=== PATIENT | female | born 1960 | race Caucasian/White ===

== ENCOUNTER 2019-07-22 09:54 | Emergency (ER) | payer BC, SELFPAY ==
[2019-07-22 10:03] VITALS: BP 149/88; PULSE 63; RESP 16; TEMP 36.1; O2SAT 99
--- NOTE | 2019-07-22 10:08 | ED.FEMALEGU ---
HPI - Female Genitourinary General Chief complaint: Urogenital-Female Stated complaint: kidney infection Time Seen by Provider: 07/22/19 10:08 Source: patient Mode of arrival: ambulatory Limitations: no limitations History of Present Illness HPI Narrative: Prema Meléndez is a 59 yo female with a PMH of parathyroid dysfunction and anxiety, who comes to express care with urinary frequency and L sided flank pain for about 2 days. Denies hx of renal stones. No fever, N/V, hematuria. 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 EYES: Denies visual changes, redness, discharge. ENT: Denies rhinorrhea, congestion, sore throat, otalgia. CARDIOVASCULAR: Denies chest pain, palpitations, edema. RESPIRATORY: Denies dyspnea, wheezing, cough GASTROINTESTINAL: Denies abdominal pain, nausea, vomiting, diarrhea. GENITOURINARY: has dysuria, no hematuria, no abnormal discharge SKIN: Denies rash or itching. NEUROLOGIC: Denies numbness, or focal weakness. PSYCHIATRIC: Denies anxiety or depression. L low back pain PMFSH Past Medical History Medical History Anxiety Hyperlipidemia Vitamin D deficiency Surgical History Surgical History S/P subtotal parathyroidectomy Family History Family History Mother Cerebrovascular accident Family history of coronary artery disease Father Family history of lung cancer, Onset Age: 53 Other Diabetes mellitus Family history of malignant neoplasm Hypertension Social History Social History (Updated 07/22/19 @ 10:19 by Teresa Villarreal CNP) Smoking status: Former smoker Smoking end date: 02/07/82 Alcohol intake: current Alcohol use details: feeling very stressed, drinks regularly with intent to cut back Gender identity (if verbalized by the patient): Female Comments At time of signature, I agree with nursing past medical, surgical, social and family history. There is no relevant family history pertinent to the presenting complaint. Pt anxious and upset- needs BP recheck through pcp Exam Narrative: Exam Narrative: GENERAL: This is a well-nourished, well-developed patient, in mild distress. HEAD: normocephalic, atraumatic. EYES: Sclera clear/white. Vision is grossly intact. EARS: External ears normal. Hearing grossly intact. NOSE: External nose normal without nasal discharge, nares without redness, no rhinorrhea. THROAT: Mucous membranes moist, NECK: Neck supple, CARDIOVASCULAR: Regular rate and rhythm without murmurs, gallops, or rubs. RESPIRATORY: Clear to auscultation. Breath sounds equal bilaterally. No wheezes, rales, or rhonchi. GASTROINTESTINAL: Abdomen soft, SKIN: warm, intact with no suspicious lesions or rash, good texture and turgor. NEURO: awake, alert, and oriented to person, place and time. There were no obvious focal neurologic abnormalities. Steady gait EXTREMITIES: Normal range of motion. BACK: Mild low left back tenderness without deformity Course Course Emergency Course: Low back pain: started on baclofen Dysurua: has been drinking water, started on keflex If not resolved or worsen, go to pcp or ER Vital Signs Vital signs: Vital Signs Temperature 97.0 F L 07/22/19 10:03 Pulse Rate 63 07/22/19 10:03 Respiratory Rate 16 07/22/19 10:03 Blood Pressure 149/88 H 07/22/19 10:03 Pulse Oximetry 99 07/22/19 10:03 Temperature 97.0 F L 07/22/19 10:03 Pulse Rate 63 07/22/19 10:03 Respiratory Rate 16 07/22/19 10:03 Blood Pressure 149/88 H 07/22/19 10:03 Pulse O
== END 2019-07-22 10:32 | disposition home or self-care (01) ==
PROVIDERS: Emergency Provider Nurse Practitioner; PCP Family Medicine
DX: R30.0 Dysuria (principal); M54.5 Low back pain
CPT/HCPCS: 81003; 87086; 87088; 99213; G0463

== ENCOUNTER 2019-08-20 12:43 | Emergency (ER) | payer OTHER, BC, SELFPAY ==
--- NOTE | ~2019-08-20 | XR_ITS ---
XR foot RT min 3V 08/20/2019 13:07 INDICATION: Right foot pain PROCEDURE: 4 views right foot COMPARISON: No prior studies for comparison. FINDINGS: Fracture, dislocation or subluxation is not identified. Lisfranc joint intact. The soft tis sues appear within normal limits. No foreign bodies are identified. IMPRESSION: 1: NO ACUTE BONE OR JOINT ABNORMALITY IDENTIFIED. Reviewed, dictated and finalized at location B.
--- NOTE | 2019-08-20 12:49 | ED.GENADULT ---
HPI - General Adult General Chief complaint: Extremity Injury, Lower Stated complaint: rt foot pain Time Seen by Provider: 08/20/19 12:49 Source: patient Mode of arrival: ambulatory Limitations: no limitations History of Present Illness HPI narrative: 59-year-old female patient presents to the [facility] with complaints of right foot pain. Patient states that she was at work today and there was a fire alarm that went off and states that she was walking down the [place] closing some doors and she heard a noise and she went to go and turn and started having pain in the right foot. Denies hitting anything. Denies falling. Patient states that she did ice it after the injury but denies take anything for pain. Denies any numbness or tingling to the foot or toes. Patient currently using a walker to ambulate into the clinic today. Related Data Home Medications Medication Instructions Recorded Confirmed No Home Medications 08/20/19 08/20/19 Allergies Allergy/AdvReac Type Severity Reaction Status Date / Time No Known Allergies Allergy Verified 07/22/19 10:07 Review of Systems Review of Systems: Narrative: CONSTITUTIONAL: Denies fever, chills, or sweats. EYES: Denies visual changes, redness, or discharge. ENT: Denies rhinorrhea, congestion, sore throat, or otalgia. CARDIOVASCULAR: Denies chest pain, palpitations, or edema. RESPIRATORY: Denies cough or dyspnea. GASTROINTESTINAL: Denies abdominal pain, nausea, vomiting, or diarrhea. GENITOURINARY: Denies dysuria or hematuria. SKIN: Denies rash or itching. MUSCULOSKELETAL: Denies back pain, joint pain, or myalgia. Positive right foot pain NEUROLOGIC: Denies headache, numbness, or weakness. PSYCHIATRIC: Denies anxiety or depression. [facility] Past Medical History Medical History Anxiety Hyperlipidemia Vitamin D deficiency Surgical History Surgical History S/P subtotal parathyroidectomy Family History Family History Mother Cerebrovascular accident Family history of coronary artery disease Father Family history of lung cancer, Onset Age: 53 Other Diabetes mellitus Family history of malignant neoplasm Hypertension Social History Social History Smoking status: Former smoker Smoking end date: 02/07/82 Alcohol intake: current Gender identity (if verbalized by the patient): Female Comments At the time of my signature I agree with nursing past medical history, surgical, social, and family history. There is no relevant family history pertinent to the presenting complaint. Exam Narrative: Exam Narrative: GENERAL: Well-appearing, well-nourished, and in no acute distress. HEAD: Normocephalic, atraumatic. EYES: PERRLA and EOMI. ENT: Nares clear, no rhinorrhea or epistaxis. Mucous membranes moist. NECK: Supple. No lymphadenopathy CHEST: Clear to auscultation. No respiratory distress. HEART: Regular rate and rhythm. No murmur heard. Normal peripheral pulses. ABDOMEN: Soft, nontender, nondistended, normal active bowel sounds. EXTREMITIES: Patient able to bear weight and ambulate without pain. No surface trauma, ecchymosis, erythema, lesions, ulcers or break in skin integrity. The R foot is without obvious asymmetry or deformity when compared to the L foot. No bony step-off, nontender to palpation over the toesor hindfoot or sole. Patient does have tenderness to the lateral midfoot on palpation. Normal plantar/dorsiflexion, inversion/eversion. Distal motor and neurovascular status are intact SKIN: Warm, dry, no rash. NEURO: No focal deficits. Alert and oriented x3. Course Reevaluation(s) Reevaluation #1: Reevaluated patient. Discussed with her that her x-ray does not show any acute fractures. Discussed with her this is most likely a strain or sprai
[2019-08-20 12:55] VITALS: BP 154/88; PULSE 92; RESP 20; TEMP 36.6; O2SAT 99
== END 2019-08-20 13:35 | disposition home or self-care (01) ==
PROVIDERS: Emergency Provider Nurse Practitioner Family; PCP Nurse Practitioner Family
DX: S93.601A Unspecified sprain of right foot, initial encounter (principal); X50.9XXA Other and unspecified overexertion or strenuous movements or postures, initial encounter; Z87.891 Personal history of nicotine dependence; E78.5 Hyperlipidemia, unspecified
CPT/HCPCS: 73630; 99213; G0463

== ENCOUNTER → 2020-02-18 07:10 | Outpatient (CLI) | payer BC, SELFPAY ==
--- NOTE | ~2020-02-18 | MM_ITS ---
EXAMINATION: MM screening [place] BI w angelo HISTORY: Screening TECHNIQUE: Craniocaudal and mediolateral oblique 3-D tomosynthesis images were obtained and synthetic 2-D images were generated. CAD analysis was submitted and interpreted. COMPARISON: Comparison to multiple prior studies sequentially, with oldest reviewed study dated 07/01. BREAST PARENCHYMAL COMPOSITION: The breasts are heterogeneously dense, which may obscure small masses . FINDINGS: There are developing asymmetries in the upper outer quadrant of the left breast. The right breast is stable without evidence for malignancy. IMPRESSION: 1. Developing left breast asymmetries. 2. Additional mammographic views and possible breast ultrasound are recommended. BI-RADS Category 0: Incomplete: Needs additional imaging evaluation. Reviewed, dictated and finalized at location A. SHER BROOMCORN IMPRESSION: 1. Developing left breast asymmetries. 2. Additional mammographic views and possible breast ultrasound are recommended . BI-RADS Category 0: Incomplete: Needs additional imaging evaluation.
== END ==
PROVIDERS: PCP Family Medicine; Visit Provider Nurse Practitioner Family
DX: Z12.31 Encounter for screening mammogram for malignant neoplasm of breast (principal); R92.8 Other abnormal and inconclusive findings on diagnostic imaging of breast
CPT/HCPCS: 77063; 77067

== ENCOUNTER → 2020-03-14 14:24 | Outpatient (CLI) | payer BC, SELFPAY ==
--- NOTE | ~2020-03-14 | MM_ITS ---
EXAMINATION: MM diagnostic mammo unilat LT HISTORY: Left breast asymmetries on screening mammogram TECHNIQUE: Additional 3-D tomosynthesis images of the left breast were performed and synthetic 2-D im ages were generated. CAD analysis was submitted and interpreted. COMPARISON: 02/18/2020, 01/02/2019, 06/02/2016 FINDINGS: There is a return to baseline fibroglandular appearance with spot compression views of the left breast. No suspicious mass, calcification, or architectural distortion are identified. IMPRESSION: 1. No mammographic evidence of malignancy. 2. Recommend routine screening mammography in one year. BI-RADS Category 1: Negative Reviewed, dictated and finalized at location A. S ARCHITECT
== END ==
PROVIDERS: Visit Provider Nurse Practitioner Family
DX: R92.8 Other abnormal and inconclusive findings on diagnostic imaging of breast (principal)
CPT/HCPCS: 77065

== ENCOUNTER → 2021-05-05 15:21 | Outpatient (CLI) | payer BC, SELFPAY ==
--- NOTE | ~2021-05-05 | MM_ITS ---
EXAMINATION: MM screening [facility] BI w angelo HISTORY: Screening mammogram TECHNIQUE: Craniocaudal and mediolateral oblique 3-D tomosynthesis images were obtained and synthetic 2-D images were generated. CAD analysis was submitted and interpreted. COMPARISON: 03/14/2020, 02/18/2020, 01/02/2019, 06/02/2016 BREAST PARENCHYMAL COMPOSITION: The breasts are heterogeneously dense, which may obscure small masses . FINDINGS: There is no suspicious mass, calcification, or architectural distortion to suggest malignan cy in either breast. There has been no suspicious interval change. IMPRESSION: 1. No mammographic evidence of malignancy. 2. Recommend routine screening mammography in one year. BI-RADS Category 1: Negative Reviewed, dictated and finalized at location A.
== END ==
PROVIDERS: Visit Provider Family Medicine
DX: Z12.31 Encounter for screening mammogram for malignant neoplasm of breast (principal)
CPT/HCPCS: 77063; 77067

== ENCOUNTER 2022-06-03 12:31 | Emergency (ER) | payer BC, SELFPAY ==
[2022-06-03 12:44] VITALS: BP 126/73; PULSE 89; RESP 16; TEMP 36.9; O2SAT 97
[2022-06-03 12:45] VITALS: BP 126/73; PULSE 89; RESP 16; TEMP 36.9; O2SAT 97
--- NOTE | 2022-06-03 12:46 | ED.URI ---
HPI - URI/Sore Throat General Chief Complaint: Upper Respiratory Infection Stated Complaint: FEVER/SINUS CONGESTION Source: patient and RN notes reviewed History of Present Illness HPI Narrative: 62 yo F presents to urgent care with complaints of congestion and a mild cough x 2-3 days. Pt reports fevers at home. Denies any chest pain, SOB, ear pain, sore throat, abdominal pain, N/V/D, or dsyuria. Pt has taken a couple Covid tests at home which were negative. Related Data Allergies Allergy/AdvReac Type Severity Reaction Status Date / Time losartan AdvReac Mild racing Verified 06/03/22 12:44 heart rate Review of Systems Review of Systems: Pertinent positives and pertinent negatives per HPI. PMFSH Past Medical History Medical History Anxiety Foot sprain Hyperlipidemia Knee pain Menopausal hot flushes Negative depression screening Normal mammography (~03/14/20) Right ankle injury Vitamin D deficiency Surgical History Surgical History S/P partial hysterectomy S/P subtotal parathyroidectomy Family History Family History Mother Cerebrovascular accident Heart disease Depression Anxiety Hypertension Father Lung cancer Grandparent Hypertension Heart disease Cerebrovascular accident Grandparent Diabetes mellitus Hypertension Heart disease Other Family history of malignant neoplasm Social History Social History Smoking status: Former smoker Smoking end date: 02/07/82 Alcohol intake: current Drinks per week: 3 Alcohol use details: feeling very stressed, drinks regularly with intent to cut back Substance use: never Living arrangements: alone Occupation/Education: occupation 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 There is no relevant family history pertinent to the patient complaint. Exam Narrative: GENERAL: This is a well-nourished, well-developed patient, in no apparent distress. HEAD: normocephalic, atraumatic. EYES: Sclera clear/white. Vision is grossly intact. EARS: External ears normal, auditory canals clear and without drainage, TMs normal without perforation. Hearing grossly intact. NOSE: Congestion THROAT: Mucous membranes moist, posterior pharynx clear. NECK: Neck supple, non-tender. Mild lymphadenopathy. CARDIOVASCULAR: Regular rate and rhythm without murmurs, gallops, or rubs. RESPIRATORY: Clear to auscultation. Breath sounds equal bilaterally. No wheezes, rales, or rhonchi. GASTROINTESTINAL: Abdomen soft, non-tender, nondistended. Bowel sounds are active. No hepato-splenomegaly, or palpable masses. No guarding. SKIN: warm, intact with no suspicious lesions or rash, good texture and turgor. NEURO: awake, alert, and oriented to person, place and time. There were no obvious focal neurologic abnormalities. Course Course Level of Care: Express Care Visit Vital Signs Vital signs: Vital Signs Temperature 98.5 F 06/03/22 12:44 Pulse Rate 89 06/03/22 12:44 Respiratory Rate 16 06/03/22 12:44 Blood Pressure 126/73 06/03/22 12:44 Pulse Oximetry 97 06/03/22 12:44 Temperature 98.5 F 06/03/22 12:45 Pulse Rate 89 06/03/22 12:45 Respiratory Rate 16 06/03/22 12:45 Blood Pressure 126/73 06/03/22 12:45 Pulse Oximetry 97 06/03/22 12:45 reviewed MDM - URI/Sore Throat MDM Narrative Medical decision making narrative: Viral illness may last between 7-21 days; antibiotics do not cure viral illness and are NOT recommended at this time. Also, recommend symptomatic treatment includes: rest, fluids
== END 2022-06-03 13:13 | disposition home or self-care (01) ==
PROVIDERS: Emergency Provider Nurse Practitioner Family; PCP Family Medicine
DX: B34.9 Viral infection, unspecified (principal); Z87.891 Personal history of nicotine dependence; E78.5 Hyperlipidemia, unspecified; Z90.711 Acquired absence of uterus with remaining cervical stump; Z90.89 Acquired absence of other organs; F41.9 Anxiety disorder, unspecified
CPT/HCPCS: 87081; 87880; 99213; G0463

== ENCOUNTER → 2022-07-15 14:14 | Outpatient (CLI) | payer BC, SELFPAY ==
--- NOTE | ~2022-07-15 | MM_ITS ---
EXAMINATION: MM screening nj BI w angelo HISTORY: Screening TECHNIQUE: Craniocaudal and mediolateral oblique 3-D tomosynthesis images were obtained and synthetic 2-D images were generated. CAD analysis was submitted and interpreted. COMPARISON: Comparison to multiple prior studies sequentially, with oldest reviewed study dated 05/21. BREAST PARENCHYMAL COMPOSITION: The breasts are heterogeneously dense, which may obscure small masses FINDINGS: There is no evidence of suspicious mass, calcification, or architectural distortion to sugg est malignancy in either breast. There has been no suspicious interval change. IMPRESSION: 1. No mammographic evidence of malignancy. 2. Recommend routine screening mammography in one year. BI-RADS Category 1: Negative Reviewed, dictated and finalized at location A.
== END ==
PROVIDERS: PCP Family Medicine; Visit Provider Family Medicine
DX: Z12.31 Encounter for screening mammogram for malignant neoplasm of breast (principal)
CPT/HCPCS: 77063; 77067

== ENCOUNTER 2023-08-24 14:00 | Outpatient (CLI) | payer BC, SELFPAY ==
--- NOTE | ~2023-08-24 | MM_ITS ---
EXAMINATION: MM screening [place]j BI w angelo HISTORY: Screening TECHNIQUE: Craniocaudal and mediolateral oblique 3-D tomosynthesis images were obtained and synthetic 2-D images were generated. CAD analysis was submitted and interpreted. COMPARISON: Comparison to multiple prior studies sequentially, with oldest reviewed study dated 06/02. BREAST PARENCHYMAL COMPOSITION: Dense: The breasts are heterogeneously dense, which may obscure small masses FINDINGS: There is no evidence of suspicious mass, calcification, or architectural distortion to sugg est malignancy in either breast. There has been no suspicious interval change. IMPRESSION: 1. No mammographic evidence of malignancy. 2. Recommend routine screening mammography in one year. BI-RADS Category 1: Negative Reviewed, dictated and finalized at location B.
== END 2023-08-24 14:01 ==
LOC: MICIMG 14:01
PROVIDERS: PCP Family Medicine; Visit Provider Physician Assistant Medical
DX: Z12.31 Encounter for screening mammogram for malignant neoplasm of breast (principal)
CPT/HCPCS: 77063; 77067

== ENCOUNTER 2024-04-17 14:30 | Outpatient (CLI) | payer BC, SELFPAY ==
--- NOTE | ~2024-04-17 | DEXA_ITS ---
Bone Density Report Name: TONG GARCIA Age: 63 Sex: Female Ethnicity: White Date of : 1960 Indication: postmenopausal; screening for osteoporosis; hysterectomy; Referring Provider: DIANE RICARDO Study: Bone densitometry was performed. Exam Date: April 17, 2024 Accession number: [id number] Bone Density: Region BMD T-score Z-score Classification AP Spine(L1-L4) 0.979 -0.6 1.0 Normal Femoral Neck (Left) 0.696 -1.4 0.0 Osteopenia Total Hip (Left) 0.860 -0.7 0.4 Normal Femoral Neck (Right) 0.699 -1.4 0.1 Osteopenia Total Hip (Right) 0.841 -0.8 0.3 Normal Total Hip Mean 0.851 -0.8 0.4 Normal World Health Organization criteria for BMD impression classify patients as: Normal (T-score at or above -1.0), Osteopenia (T-score between -1.0 and -2.5), or Osteoporosis (T-score at or below -2.5). 10-year Fracture Risk(1): Major Osteoporotic Fracture 7.7% Hip Fracture 0.7% Reported Risk Factors: [place] (), Neck BMD=0.696, BMI=22.5 (1) FRAX(R) Version 3.08. Fracture probability calculated for an untreated patient. Fracture probability may be lower if the patient has received treatment. Previous Exams: Region Exam Age BMD T-score BMD Change BMD Change Date g/cm2 vs Baseline vs Previous AP Spine (L1-L4) 04/17/2024 63 0.979 -0.6 -0.002 (-0.3%) -0.002 (-0.3%) 06/30/2016 56 0.982 -0.6 Total Hip(Left) 04/17/2024 63 0.860 -0.7 0.003 (0.3%)# 0.003 (0.3%)# 06/30/2016 56 0.857 -0.7 Total Hip(Right) 04/17/2024 63 0.841 -0.8 -0.019 (-2.2%) -0.019 (-2.2%) 06/30/2016 56 0.860 -0.7 *Denotes significance at 95% confidence level, LSC for AP Spine = 0.022 g/cm2, LSC for Total Hip = 0.027 g/cm2 # Denotes dissimilar scan types or analysis methods Clinical Information Provided by Patient: Has the following medical conditions: Hysterectomy Patient maximum height was 65 Menopause Age: 48 No regular weight bearing exercise Drinks caffeinated beverages Onset of menses at age 14 Number of children 1 Impression: The patient has low bone mass, based on the Left Femoral Neck T-score. The patient has an estimated ten-year risk of hip fracture of 0.7% and an estimated ten-year risk of major fracture of 7.7%, based on the WHO FRAX algorithm. No significant bone loss was observed. Discussion: BONE DENSITY IS LOW AT ONE OR MORE SKELETAL SITES. This patient's lowest T-score is low at one or more skeletal sites. It meets the World Health Organization's (WHO) criteria for ?low bone mass? (T-score between -1.0 and -2.5). The patient's 10-year risk of fracture as calculated by FRAX is less than the threshold where pharmacological therapy is recommended by the National Osteoporosis Foundation (NOF). However, all treatment decisions require clinical judgment and consideration of individual patient factors, including patient preferences, comorbidities, previous drug use, risk factors not captured in the FRAX model (e.g., frailty, falls, vitamin D deficiency, increased bone turnover, interval significant decline in bone density) and possible under or overestimation of fracture risk by FRAX. The patient should follow a healthful lifestyle (good nutrition with adequate calcium and vitamin D, and appropriate weight-bearing exercise). Follow-Up: Consider repeating this study in 2 to 3 years to reassess this patient's status, or sooner if there is some new clinical indication. Reported by: BENSON on 04/17/2024 3:21:00 PM. Reviewed, dictated and finalized at location A. JOHANNE
--- OUTSIDE RECORDS SUMMARY | 2024-04-17 16:31 | XMS_ITS | Clinical Summary ---
Author Organization [facility] Address [address] [place] [address] Care Team Providers Care Pre K Lead Teacher Name Role Phone Pcp, Yusuf Almendarez Primary Care Provider Unav ailable Source Comments [facility],non-owned Affiliates and Associated Physician Practices is amultiple site organization consisting of ambulatory clinics and hospital sitesin [place], [place], [place] and [place]. This disclosure is being madepursuant to the Care Everywhere program and may not contain all information available regarding this patient. Last updated 17.[facility] Allergies No known active allergies Medications * Be aware that medications may not be up to date on this document. Alwaysverify current medications with the patient. Medication Sig Dispensed Refills Start Date End Date Status lisinopril (PRINIVIL;ZESTRIL) 5 MG tablet Take 1 (one) tablet by mouth once daily 90 tablet 1 09/11/2020 Active ALPRAZolam (XANAX) 0.5 MG tablet Take 1 (one) tablet by mouth nightly as needed for Anxiety 90 tablet 01/14/2021 Active cyclobenzaprine (FLEXERIL) 5 MG tablet Take 1 (one) tablet by mouth 3 times daily as needed 30 tablet 1 01/14/2021 Active Active Problems Problem Noted Date Diagnosed Date Hot flashes 01/16/2021 Long-term current use of benzodiazepine 07/30/19 21 HTN (hypertension) Insomnia Immunizations Name Administration Dates Next Due INFLUENZA VACCINE, QUADR. (F LUZONE; FLULAVAL; FLUARIX; AFLURIA QUADRIVALENT; 6MO+), 0.5 ML (IIV4) 10/21/2019 TD (ADULT), 5 LF TETANUS TOXOID, ADSORBED, PF Family History Medical History Relation Name Comments Aneurysm, Brain Maternal Grandmother CAD (Coronary Artery Disease) Maternal Uncle 1 CAD (Coronary Artery Disease) Maternal Uncle 2 CABG x4 CAD (Coronary Artery Disease) Mother CVA Mother x4, hemorrhagic Hypertension Sister Relation Name Status Comments Maternal Grandmother Maternal Uncle 1 Maternal Uncle 2 Mother Sister Social History Tobacco Use Types Packs/Day Years Used Date Smoking Tobacco: Never Smokeless Tobacco: Never Alcohol Use Standard Drinks/Week Comments Yes 0 (1 standard drink = 0.6 oz pur e alcohol) Rare PHQ-2 Answer Date Recorded PHQ2 TOTAL SCORE 0 01/14/2021 Sex and Gender Information Value Date Recorded Sex Assigned at Not on file Gender Identity Not on file Sexual Orientation Not on file Last Filed Vital Signs Vital Sign Reading Time Taken Comments Blood Pressure 138/82 01/14/2021 11:34 AM SENIOR PAYROLL ADMINISTRATOR Pulse 74 01/14/2021 11:34 AM SENIOR PAYROLL ADMINISTRATOR Temperature 36.6 C (97.9 F) 09/11/2020 1:56 PM CDT Respiratory Rate - - Oxygen Saturation 100% 01/14/2021 11:34 AM SENIOR PAYROLL ADMINISTRATOR Inhaled Oxygen Concentration - - Weight 60.8 kg (134 lb) 01/14/2021 11:34 AM SENIOR PAYROLL ADMINISTRATOR Height 165.1 cm (5' 5 ) 01/14/2021 11:34 AM SENIOR PAYROLL ADMINISTRATOR Body Mass Index 22.3 01/14/2021 11:34 AM SENIOR PAYROLL ADMINISTRATOR Plan of Treatment Health Maintenance Due Date Last Done Comments COLOGUARD (AGES 45-75) - COL ON CA SCREENING 1960 COLON MONITORING 1961 COLONOSCOPY - COLON CA SCREENING 1961 CT COLONOGRAPHY - COLON CA SCREENING 1960 Colorectal Cancer Screening 1960 FIT - COLON CA SCREENING 1961 FLEX SIG - COLON CA SCREENING 1961 LIPID TESTING 1961 HIV SCREENING 1976 HEPATITIS C SCREENING 04/17/1979 PNEUMOCOCCAL VACCINE 50+ (1 of 1 - PCV) 04/22/2011 ZOSTER VACCINE (1 of 2) 04/22/2011 MAMMOGRAM 07/13/2013 07/14/2011, 05/21/2009 COVID-19 VACCINE (2023-2 5 season) 2023 04/11/2021, 03/01/2020, 02/09/2020 INFLUENZA VACCINE (#1) 2023 10/21/2019 DEPRESSION SCREENING 02/08/2024 DTAP/TDAP/TD VACCINES (2 - T d or Tdap) 10/20/2029 10/21/2019 Respiratory Syncytial Virus (RSV) Vaccine Pt: or over 60 yrs (1 - 1-dose 75+ series) 2036 HEPATITIS B VACCINE Aged Out No longe r eligible based on patient's age to complete this topic HIB VACCINE Aged Out No longer eligi ble based on patient's age to complete this topic HPV VACCINE Aged Out No longer eligi ble based on patient's age to complete this topic MENINGOCOCCAL (Group B) VACCINE Aged Out No longer eligible b ased on patient's age to complete this topic MENINGOCOCCAL VACCINE Aged Out No joe cristina eligible based on patient's age to complete this topic PNEUMOCOCCAL VACCINE Aged Out No long er eligible based on patient's age to complete this topic Procedures Procedure Name Priority Date/Time Associated Diagnosis Comments MAMMO BILAT SCREENING Routine 07/14/2011 from Last 3 Months or Most Recently Relevant to Health Maintenance Results * MAMMO SCREENING DIGITAL IMAGE BILAT (07/14/2011) Anatomical Region Laterality Modality Breast Bilateral Other Shay Blackman MD MAMMO ORDERABLES from Last 3 Months or Most Recently Relevant to Health Maintenance Care Teams Pre K Lead Teacher Relationship Specialty Start Date End Date PcpYusuf PCP - General 09/03/22
--- OUTSIDE RECORDS SUMMARY | 2024-04-17 16:31 | XMS_ITS ---
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 * Medical History: Objective: * Vitals: Assessment: Plan: * Treatment: * Billing Information: * Visit Code: * Procedure Codes: * Electronic signature of Lilibeth Hamilton MD on 04/17/2024 at 04:31 PM CDT Sign off status: Pending * Provider: Dafne Hamilton MD Date: 1 Generated for Antoinette vincent/Sapphire/eThenrysmitting on: 0 04/17/2024 04:31 PM CDT
--- OUTSIDE RECORDS SUMMARY | 2024-04-17 16:31 | XMS_ITS | Patient Health Summary ---
Author Organization [facility] Address [address] [place] [address] Care Team Providers Care Receiving Distribution Station Operator Name Role Phone Pcp, Yusuf Almendarez Primary Care Provider Unav ailable Note from [facility],non-owned Affiliates and Associated Physician Practices is amultiple site organization consisting of ambulatory clinics and hospital sitesin [place], [place], [place] and [place]. This disclosure is being madepursuant to the Care Everywhere program and may not contain all information available regarding this patient. Last updated 17.[facility] Allergies No known active allergies Medications * Be aware that medications may not be up to date on this document. Alwaysverify current medications with the patient. * lisinopril (PRINIVIL;ZESTRIL) 5 MG tablet(Started 09/11/2020) Take 1 (one) tablet by mouth once daily 1 refill by 09/11/2021 * ALPRAZolam (XANAX) 0.5 MG tablet(Started 01/14/2021) Take 1 (one) tablet by mouth nightly as needed for Anxiety * cyclobenzaprine (FLEXERIL) 5 MG tablet(Started 01/14/2021) Take 1 (one) tablet by mouth 3 times daily as needed 1 refill by 01/14/2022 Active Problems Problem Noted Date Diagnosed Date Hot flashes 01/16/2021 Long-term current use of benzodiazepine 07/30/19 21 HTN (hypertension) Insomnia Immunizations * INFLUENZA VACCINE, QUADR. (FLUZONE; FLULAVAL; FLUARIX; AFLURIA QUADRIVALENT; 6MO+), 0.5 ML (IIV4)(Given 10/21/2019) * TD (ADULT), 5 LF TETANUS TOXOID, ADSORBED, PF(Given 10/21/2019) Social History Tobacco Use Types Packs/Day Years [...] Comments Blood Pressure 138/82 01/14/2021 11:34 AM STRATEGIC SOURCING SPECIALIST Pulse 74 01/14/2021 11:34 AM STRATEGIC SOURCING SPECIALIST Temperature 36.6 C (97.9 F) 09/11/2020 1:56 PM CDT Respiratory Rate - - Oxygen Saturation 100% 01/14/2021 11:34 AM STRATEGIC SOURCING SPECIALIST Inhaled Oxygen Concentration - - Weight 60.8 kg (134 lb) 01/14/2021 11:34 AM STRATEGIC SOURCING SPECIALIST Height 165.1 cm (5' 5 ) 01/14/2021 11:34 AM STRATEGIC SOURCING SPECIALIST Body Mass Index 22.3 01/14/2021 11:34 AM STRATEGIC SOURCING SPECIALIST Procedures * BASIC METABOLIC PANEL (CALCIUM TOTAL)(Performed 08/13/2020) Performed for Essential hypertension * LAB RESULTS ORDER(Performed 04/22/2020) * SKIN TEST PPD - POINT OF CARE(Performed 10/23/2019) Performed for Screening for tuberculosis * MAMMO BILAT SCREENING(Performed 07/14/2011) * PAP IG LB RFLX HPV HR ASCU RFLX 16,18(Performed 05/20/2010) Performed for Routine gynecological examination * MAMMO LEFT DIAGNOSTIC(Performed 06/04/2009) Performed for Abnormal Mammogram * MAMMO BILAT SCREENING(Performed 05/21/2009) * PAP IG RFLX HPV ASCU(Performed 04/30/2009) Performed for Routine Gynecological Examination * PAP IG RFLX HPV ASCU(Performed 04/08/2008) Performed for Routine Gynecological Examination * GROSS + MICRO EXAM(Performed 03/10/2006) * GROSS + MICRO EXAM(Performed 05/06/2005) Results * (ABNORMAL) BASIC METABOLIC PANEL (CALCIUM TOTAL) (08/13/2020 1:11 PM CDT) Glucose 126(H) 65 - 99 mg/dL [facility] Comment: Fasting reference interval For someone without known diabetes, a glucose value >125 mg/dL indicates that they may have diabetes and this should be confirmed with a follow-up test. BUN 22 7 - 25 mg/dL [facility] Creatinine 0.83 0.50 - 1.05 mg/dL [facility] Comment: For patients >49 years of age, the reference limit for Creatinine is approximately 13% higher for people identified as -Cambodian. eGFR by MDRD 77 > OR = 60 mL/min/1 .73m2 [facility] eGFR by MDRD 89 > OR = 60 mL/min/1 .73m2 [facility] BUN/Creatinine Ratio NOT APPLICABLE 6 - 22 (calc) [facility] Sodium 139 135 - 146 mmol/L [facility] Potassium 4.2 3.5 - 5.3 mmol/L [facility] Chloride 103 98 - 110 mmol/L [facility] CO2 28 20 - 32 mmol/L [facility] Calcium 9.4 8.6 - 10.4 mg/dL [facility] Comment: REPORT COMMENT: AN UPDATE OR CORRECTION HAS BEEN MADE TO NAME Test Performed at: [facility] [address] [place] [address] URSULA COLINDRES DO,MPH Blood BLOOD SPECIMEN / Unknown 08/13/2020 1:11 PM CDT 08/13/2020 1:11 PM CDT Ethan Duenas DO LAB - CHEMISTRY [facility] [address] [place] [address] * LAB RESULTS ORDER (04/22/2020) Scanned Document LAB - THERAPEUTIC DR PICHARDO MONITORING ORDERABLES * SKIN TEST PPD - POINT OF CARE (10/23/2019 2:00 PM CDT) PPD 0mm normal, ppd placed on 10/21/2019 @ 1130, ppd read on 10/23/2019 @ 2pm Other MISCELLANEOUS SAMPLE S / Unknown Abraham Andrews HEEL NAIL RASPER-BACK TENDER PAPER MACHINE LAB - POINT OF CARE ORDERABLES * MAMMO SCREENING DIGITAL IMAGE BILAT (07/14/2011) Only the most recent of2 resultswithin the time period is included. Anatomical Region Laterality Modality Breast Bilateral Other Shay Mcdonnell MD MAMMO ORDERABLES * PAP IG RFLX HPV ASCU RFLX 16/18 (PO REF LAB) (05/20/2010 4:00 PM CDT) Diagnosis [facility] ACCOUNT BILL Comment:NEGATIVE FOR INTRAEP ITHELIAL LESION AND MALIGNANCY. Specimen Adequacy [facility] ACCOUNT BILL Comment: Satisfactory for evaluation. Endocervical and/or squamous metaplastic cells (endocervical component) are present. Clinician Provided ICD9 [facility] ACCOUNT BILL Comment:V72.31 ; Routine weaver dobby loom ecological examination Performed by [facility] ACCOUNT BILL Comment:Louisa Benton, Cyto technologist (ASCP) Comment . [facility] ACCOUNT BILL Note [facility] ACCOUNT BILL Comment: The Pap smear is a screening test designed to aid in the detection of premalignant and malignant conditions of the uterine cervix. It is not a diagnostic procedure and should not be used as the sole means of detecting cervical cancer. Both false-positive and false-negative reports do occur. . IGLBP CPT Code Automation [facility] ACCOUNT BILL Comment: This liquid based ThinPrep(R) pap test was screened with the use of an image guided system. Reflex [facility] ACCOUNT BILL Comment: The HPV DNA reflex criteria were not met with this specimen result therefore, no HPV testing was performed. . MICROSCOPIC CYTOLOGIC EXAMINATION OF SMEAR OF SPECIMEN FROM FEMALE GENITAL TRACT PREPARED USING PAPANICOLAOU TECHNIQUE / Unknown 05/20/2010 4:00 PM CDT 05/22/2010 3:17 AM CDT Narrative [facility] ACCOUNT BILL - 05/25/2010 2:13 PM CDT No. of containers..01 CYTYC Thin Prep Vial Resulting Agency Comment [facility] [address] [id number] Shay Mcdonnell MD LAB - PATHOLOGY/CYTO LOGY ORDERABLES [facility] ACCOUNT BILL * MAMMO DIAG DIRECT DIGITAL IMAGE UNIL LEFT (06/04/2009) Anatomical Region Laterality Modality Left Other Shay Mcdonnell MD MAMMO ORDERABLES * PAP SMEAR IG RFLX HPV ASCU (PO REF LAB) (04/30/2009 3:45 PM CDT) Only the most recent of2 resultswithin the time period is included. Diagnosis [facility] ACCOUNT BILL Comment:NEGATIVE FOR INTRAEP ITHELIAL LESION AND MALIGNANCY. Specimen Adequacy [facility] ACCOUNT BILL Comment: Satisfactory for evaluation. Endocervical and/or squamous metaplastic cells (endocervical component) are present. Clinician Provided ICD9 [facility] ACCOUNT BILL Comment:V72.31 ; Routine weaver dobby loom ecological examination Performed by [facility] ACCOUNT BILL Comment:Sim Martinez , Expressive Therapist (ASCP) Comment . [facility] ACCOUNT BILL Note [facility] ACCOUNT BILL Comment: The Pap smear is a screening test designed to aid in the detection of premalignant and malignant conditions of the uterine cervix. It is not a diagnostic procedure and should not be used as the sole means of detecting cervical cancer. Both false-positive and false-negative reports do occur. . IGLBP CPT Code Automation [facility] ACCOUNT BILL Comment: This liquid based ThinPrep(R) pap test was screened with the use of an image guided system. Reflex [facility] ACCOUNT BILL Comment: The HPV DNA reflex criteria were not met with this specimen result therefore, no HPV testing was performed. . MICROSCOPIC CYTOLOGIC EXAMINATION OF SMEAR OF SPECIMEN FROM FEMALE GENITAL TRACT PREPARED USING PAPANICOLAOU TECHNIQUE / Unknown 04/30/2009 3:45 PM CDT 05/01/2009 3:21 AM CDT Narrative [facility] ACCOUNT BILL - 05/03/2009 9:16 AM CDT Source.............Vaginal No. of containers..01 CYTYC Thin Prep Vial Resulting Agency Comment [facility] [address] [id number] Shay Mcdonnell MD LAB - PATHOLOGY/CYTO LOGY ORDERABLES [facility] ACCOUNT BILL * GROSS + MICRO EXAM (03/10/2006 11:08 AM STRATEGIC SOURCING SPECIALIST) Only the most recent of2 resultswithin the time period is included. Result CASE NUMBER [id number] Comment: ORDERING PHYSICIAN SHAY MCDONNELL SPECIMEN TYPE Uterus Date 03/10/2006 Physician Yehuda, D Gross Description The specimen is received in one Formalin filled container labeled with the patient's name, Prema Meléndez, and uterus. It consists of a uterus and cervix weighing 125 grams. The uterus measures 8 x 7.6 x 3.9 cm. The cervix is 2.2 cm long x 3.8 cm in diameter. The serosal surface is smooth with focal areas of hyperemia, and is deformed by a 2.2 x 1.1 cm round firm lesion on the posterior/superior aspect of the uterus. The ectocervix is smooth and white. The os is linear. The uterus is distorted by multiple round leiomyomas ranging in size from 0.7 cm to 1.6 cm in greatest dimension. They have a whorled varela white appearance without hemorrhage or necrosis. The undistorted myometrium has a thickness of 1.8 cm. The endometrial cavity measures 5 x 1.2 x 0.4 cm. The endometrium is varela and measures 0.3 cm in thickness. The Fallopian tube has been severed. Sections are submitted as follows Cassette A Anterior cervix. Cassette B Posterior cervix. Cassette C Anterior corpus. Cassette D Posterior corpus. Cassette E Large leiomyoma from anterior endometrium. Cassette F Leiomyoma from posterior/superior serosal surface. JA rodriguez Microscopic Exam Sections of the cervix show benign unremarkable histology. The squamous epithelium shows normal maturation. The endocervical glands are also unremarkable. No dysplasia or malignancy is seen. Sections of the endomyometrium show inactive endometrium. The myometrium shows benign leiomyomas. No evidence of malignancy is seen. MC/na Diagnosis I. Uterus, hysterectomy -- Cervix with no pathologic diagnosis -- Inactive endometrium -- Leiomyomata MC/na Tax Investigator na Pathologist Rambo Agrawal M.D. [place]. 03/11/2006 1012 <2> CPT code 83294 MISCELLANEOUS SAMPLES / Unknown 03/10/2006 11:08 AM STRATEGIC SOURCING SPECIALIST 03/10/2006 11:08 AM STRATEGIC SOURCING SPECIALIST Historical Provider LAB - PATHOLOGY/C YTOLOGY ORDERABLES Care Teams Receiving Distribution Station Operator Relationship Specialty Start Date End Date Pcp, Yusuf Almendarez PCP - General 09/03/22
--- OUTSIDE RECORDS SUMMARY | 2024-04-17 16:31 | XMS_ITS | Patient Health Record ---
Author Organization [facility] Address [address] [place] [address] Care Team Providers Care Tire Builder Heavy Service Name Role Phone Kinjal Hamilton Unavailable [phone] Reason For Referral No Information Plan Of Treatment No Information Insurance Providers Payer Name Payer Address Payer Phone Subscriber Number Group Number Insured Name Patient Relationship to Insured Coverage Start Date Coverage End Date [facility] [id number] [place] [address] [id number] Prema Meléndez Self - patient is the insured
--- OUTSIDE RECORDS SUMMARY | 2024-04-17 16:31 | XMS_ITS | Referral Summary ---
Author Organization [facility] Address [address] [place] [address] Care Team Providers Care Certified Nursing Attendant Name Role Phone Pcp, Yusuf Almendarez Primary Care Provider Unav ailable Source Comments [facility],non-owned Affiliates and Associated Physician Practices is amultiple site organization consisting of ambulatory clinics and hospital sitesin [place], [place], [place] and [place]. This disclosure is being madepursuant to the Care Everywhere program and may not contain all information available regarding this patient. Last updated 17.[facility] Allergies No known active allergies Medications * [...] (ADULT), 5 LF TETANUS TOXOID, ADSORBED, PF Social History Tobacco Use Types Packs/Day Years [...] Comments Blood Pressure 138/82 01/14/2021 11:34 AM METER CHANGES RECORDS CLERK Pulse 74 01/14/2021 11:34 AM METER CHANGES RECORDS CLERK Temperature 36.6 C (97.9 F) 09/11/2020 1:56 PM CDT Respiratory Rate - - Oxygen Saturation 100% 01/14/2021 11:34 AM METER CHANGES RECORDS CLERK Inhaled Oxygen Concentration - - Weight 60.8 kg (134 lb) 01/14/2021 11:34 AM METER CHANGES RECORDS CLERK Height 165.1 cm (5' 5 ) 01/14/2021 11:34 AM METER CHANGES RECORDS CLERK Body Mass Index 22.3 01/14/2021 11:34 AM METER CHANGES RECORDS CLERK Plan of Treatment Not on file Procedures Procedure Name Priority Date/Time Associated Diagnosis Comments MAMMO BILAT SCREENING Routine 07/14/2011 from Last 3 Months or Most Recently Relevant to Health Maintenance Results * MAMMO SCREENING DIGITAL IMAGE BILAT (07/14/2011) Anatomical Region Laterality Modality Breast Bilateral Other Shay Blackman MD MAMMO ORDERABLES from Last 3 Months or Most Recently Relevant to Health Maintenance Administered Medications Care Teams Certified Nursing Attendant Relationship Specialty Start Date End Date Pcp, Yusuf Almendarez PCP - General 09/03/22
== END 2024-04-17 14:31 | disposition home or self-care (01) ==
LOC: ANHIMG 14:38
PROVIDERS: PCP Family Medicine; Visit Provider Family Medicine
DX: M85.89 Other specified disorders of bone density and structure, multiple sites (principal); Z78.0 Asymptomatic menopausal state; Z13.820 Encounter for screening for osteoporosis
CPT/HCPCS: 77080

== ENCOUNTER 2024-07-24 10:42 | Emergency (ER) | payer BC, SELFPAY ==
[2024-07-24 10:51] VITALS: BP 141/87; PULSE 85; RESP 16; TEMP 36.4; O2SAT 96
[2024-07-24 11:12] VITALS: BP 141/87; PULSE 86; RESP 16; O2SAT 98
--- NOTE | 2024-07-24 11:28 | ED_ITS ---
HPI - Animal Bite General Chief Complaint: Animal Bite Stated Complaint: cat bite Time Seen by Provider: 07/24/24 11:06 Source: patient Mode of arrival: ambulatory Limitations: no limitations History of Present Illness HPI narrative: Patient is a 64-year-old female, with PMH of HTN, who presents to the ED with c/o cat bite to her R calf. Patient reports she was bit by one of her farm cats in her R calf on 07/18. She began having redness/swelling to calf. She went to on 07/22, Rx'd augmentin, topical abx, given Tetanus shot. States she has since developed worsening swelling to calf, concerned for abscess. Denies significant pain. Denies fevers, chills, N/V. Denies hx of DM. Related Data Allergies Allergy/AdvReac Type Severity Reaction Status Date / Time losartan AdvReac Mild racing Verified 07/24/24 10:55 heart rate metoprolol AdvReac Unknown Verified 07/24/24 10:55 Review of Systems 2 Review of Systems: All systems reviewed & are unremarkable except as noted in HPI. All systems reviewed & are unremarkable except as noted in HPI and below PMFSH Past Medical History Medical History Prediabetes Knee pain Normal mammography (~03/14/20) Foot sprain Right ankle injury Negative depression screening Menopausal hot flushes Anxiety Hyperlipidemia Vitamin D deficiency Surgical History Surgical History S/P partial hysterectomy S/P subtotal parathyroidectomy Family History Family History Mother Cerebrovascular accident Heart disease Depression Anxiety Hypertension Father Lung cancer Grandparent Hypertension Heart disease Cerebrovascular accident Grandparent Diabetes mellitus Hypertension Heart disease Other Family history of malignant neoplasm Social History Social History Smoking status: Former smoker Smoking end date: 02/07/82 Alcohol intake: current Drinks per week: 3 Alcohol use details: feeling very stressed, drinks regularly with intent to cut back Substance use: never Lack of Transportation: No Lack of Food: Never True Current Housing: Decline to Answer Concerned About Future Housing: Decline to Answer Difficulty Paying Gas/Electric Bills: Decline to Answer Difficulty Paying for Meds: Decline to Answer Currently Unemployed: Decline to Answer Education: Decline to Answer Difficulty w/ Childcare or Family Care: Decline to Answer Living arrangements: alone Occupation/Education: 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 HEAD: Normocephalic, atraumatic. RESPIRATORY: Airway patent, respirations nonlabored. CARDIOVASCULAR: Regular rate and rhythm without murmurs, rubs, or gallops. Pedal pulses intact MUSCULOSKELETAL: Moves all extremities. R calf with raised erythematous induration lesion to middle of calf, with small areas of central fluctuance. Mild surrounding erythema approx 2cm outside indurated lesion in circular pattern. No active drainage. No lymphangitic streaking. SKIN: Warm, dry, normal color. NEURO: A&O X3. Speech clear. No ataxic movements. PSYCHIATRIC: Appropriate mood and affect. Normal interaction. Course Vital Signs Vital signs: Vital Signs Temperature 97.5 F L 07/24/24 10:51 Pulse Rate 85 07/24/24 10:51 Respiratory Rate 16 07/24/24 10:51 Blood Pressure 141/87 H 07/24/24 10:51 Pulse Oximetry 96 07/24/24 10:51 Oxygen Delivery Room Air 07/24/24 10:51 Temperature 97.5 F L 07/24/24 10:51 Pulse Rate 75 07/24/24 13:02 Respiratory Rate 16 07/24/24 13:02 Blood Pressure 149/79 H 07/24/24 13:02 Pulse Oximetry 99 07/24/24 13:02 Oxygen Delivery Room Air 07/24/24 10:51 Procedures Abscess I/D lower extremity: Date of Incision: 07/24/24 Time of Incision: 13:50 Side (if applicable): right (calf) Sedation/analgesia: none Local Anesthetic: lidocaine 1% Amount of anesthesia used (mL): 4 Technique: incised with #11 blade and probed loculations Amount of fluid expressed (mL): 5 Irrigation: Yes Packing used?: iodoform I&D Results: Pus and Blood Complications: other (none) MDM - Animal Bite MDM Narrative Medical decision making narrative: Patient presented to ED with concern for abscess to right calf, status post cat bite last week. VSS upon arrival. Patient afebrile. Tetanus UTD. Has been on augmentin for past 2 days. Laboratory studies are reassuring. No leukocytosis. Stable electrolytes. Normal inflammatory markers. Bedside ultrasound was utilized and I do visualize a large localized superficial fluid collection. Will perform I&D. I&D performed at bedside, assisted by Pascale JOYCE, approx 5mL of purulence material drained. Patient tolerated procedure well. Feeling better. Discussed admission for IV antibiotics versus discharge to continue Augmentin. Patient feels comfortable discharge home. Does not wish to be admitted at this time. Will prescribe additional 3 days of Augmentin for a complete 10 day course of Augmentin. Advised warm compresses, close monitoring of wound, very strict return precautions. Patient voiced understanding. Discharged in stable condition. Medical Records Attestation: I reviewed the patient's medical records. Lab Data Attestation: I reviewed the patient's lab results. 07/24/24 12:32 07/24/24 12:32 Labs: Lab Results 07/24/24 Range/Units 12:32 WBC 8.5 (4.5-10.0) K/mm3 RBC 4.34 (4.2-5.4) M/mm3 Hgb 12.5 (12.0-15.0) g/dL Hct 40.1 (37.0-47.0) % MCV 92.4 (80-100) fl MCH 28.8 (26-34) pg MCHC 31.2 L (32-36) g/dl RDW 13.2 (11.5-14.5) % Plt Count 331 (150-375) k/mm3 MPV 8.7 (7.4-10.4) fl Immature Gran % (Auto) 0.2 (0-0.5) % Neut % (Auto) 72.4 (45.5-73.1) % Lymph % (Auto) 14.7 L (18.3-44.2) % Stokes % (Auto) 9.4 H (2.6-8.5) % Eos % (Auto) 2.6 (0-4.4) % Baso % (Auto) 0.7 (0.2-1.2) % Lymph # (Auto) 1.25 (0.9-3.2) K/mm3 Stokes # (Auto) 0.8 H (0.1-0.6) K/mm3 Eos # (Auto) 0.2 (0-0.3) K/mm3 Baso # (Auto) 0.1 (0.0-0.1) K/mm3 Abs Immat Gran (auto) 0.02 (0.00-0.031) K/mm3 Absolute Neuts (auto) 6.1 (1.3-6.7) K/mm3 Absolute Nucleated RBC 0.000 (0.0-0.012) K/mm3 Nucleated RBC % 0.0 (0.0-0.2) % ESR 15 (0-20) mm/hr Sodium 138 (137-145) mmol/L Potassium 4.1 (3.4-5.0) mmol/L Chloride 106 (98-107) mmol/L Carbon Dioxide 28 (22-30) mmol/L Anion Gap 4 (4-12) mmol/L BUN 17 (7-17) mg/dL Creatinine 0.69 L (0.7-1.0) mg/dL Estim Creat Clear Calc 65 ml/min Estimated GFR > 60 (59 - ) Glucose 95 (65-110) mg/dL Calcium 9.7 (8.4-10.2) mg/dL C-Reactive Protein 0.5 (<1.0) mg/dL Discharge Plan Discharge Clinical Impression: Cat bite of right lower leg, Abscess of right lower extremity Patient Disposition: Home Condition: Stable Instructions: Antibiotic Form, Animal Bite (ED), Abscess Follow-up (ED) Additional Instructions: Take Augmentin for full 10 days. Recommend frequent warm compresses to calf. Allow packing to fall out on its own over the next couple of days. If it does not fall out by day 3, you may remove this yourself by gently pulling on the tail. Follow-up with your primary care doctor for further evaluation. Return to the ED for worsening symptoms, redness streaking up or down leg, fevers, unable to keep down food or drink, or any other symptoms of concern. Patient Language: Armenian Prescriptions: New amoxicillin-pot clavulanate 875-125 mg tablet 1 tablet PO Q12H 3 Days Qty: 6 0RF No Action olopatadine [Pataday Once Daily Relief] 0.2 % drops 1 drp EACH EYE BID Qty: 2.5 0RF cyclobenzaprine 5 mg tablet 5 mg PO TID PRN (Reason: muscle spasm) Qty: 60 0RF lisinopril 10 mg tablet 5 mg PO DAILY Qty: 90 3RF alprazolam 0.5 mg tablet 0.5 mg PO .at bedtime PRN (Reason: sleep) Qty: 30 1RF Follow-up/Referrals: Harper Laguerre MD [Primary Care Provider] - Time of Disposition: 14:10
--- OUTSIDE RECORDS SUMMARY | 2024-07-24 11:48 | XMS_ITS | Clinical Summary ---
Author Organization [facility] Address [address] [place] [address] Care Team Providers Care Olive Grader Name Role Phone Pcp, Yusuf Almendarez Primary Care Provider Unav ailable Source Comments [facility],non-owned Affiliates and Associated Physician Practices is amultiple site organization consisting of ambulatory clinics and hospital sitesin [place], [place], [place] and [place]. This disclosure is being madepursuant to the Care Everywhere program and may not contain all information available regarding this patient. Last updated 17.[facility] Allergies No known active allergies Medications * Be aware that medications may not be up to date on this document. Alwaysverify current medications with the patient. lisinopril (PRINIVIL;ZESTR IL) 5 MG tablet Take 1 (one) tablet [...] benzodiazepine 07/30/19 21 HTN (hypertension) Insomnia Immunizations Immunization Administration Dates Next Due INFLUENZA VACCINE, QUADR. 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 Not on file Not on file Not on file Last Filed Vital Signs Vital Sign Reading Time Taken Comments Blood Pressure 138/82 01/14/2021 11:34 AM DESKTOP PUBLISHING ASSOCIATE Pulse 74 01/14/2021 11:34 AM DESKTOP PUBLISHING ASSOCIATE Temperature 36.6 C (97.9 F) 09/11/2020 1:56 PM CDT Respiratory Rate - - Oxygen Saturation 100% 01/14/2021 11:34 AM DESKTOP PUBLISHING ASSOCIATE Inhaled Oxygen Concentration - - Weight 60.8 kg (134 lb) 01/14/2021 11:34 AM DESKTOP PUBLISHING ASSOCIATE Height 165.1 cm (5' 5) 01/14/2021 11:34 AM DESKTOP PUBLISHING ASSOCIATE Body Mass Index 22.3 01/14/2021 11:34 AM DESKTOP PUBLISHING ASSOCIATE Plan of Treatment Health Maintenance Due Date [...] (2023-2 5 season) 2023 04/11/2021, 03/01/2020, 02/09/2020 DEPRESSION SCREENING 02/08/2024 INFLUENZA VACCINE (Season Ended) 2024 10/21/2019 DTAP/TDAP/TD VACCINES (2 - T d or [...] complete this topic MENINGOCOCCAL (Group B) VACCINE SHARED DECISION-MAKING Aged Out No longer eligible based on patient's age to complete this topic MENINGOCOCCAL GROUPS A/C/Y/W VACCINE Aged Out No longer eligible b ased on patient's age to complete this topic Procedures Procedure Name Priority Date/Time Associated Diagnosis Comments MAMMO BILAT SCREENING Routine 07/14/2011 from Last 3 Months or Most Recently Relevant to Health Maintenance Results * MAMMO SCREENING DIGITAL IMAGE BILAT (07/14/2011) Anatomical Region Laterality Modality Breast Bilateral Other us Shay Blackman MD MAMMO ORDERABLES Final Resul t from Last 3 Months or Most Recently Relevant to Health Maintenance Insurance BC/[facility] Care Teams Olive Grader Relationship Specialty Start Date End Date Pcp, Yusuf Almendarez PCP - General 09/03/22
--- OUTSIDE RECORDS SUMMARY | 2024-07-24 11:48 | XMS_ITS | Continuity of Care Document ---
Author Organization [facility] Address [address] [place] [address] Phone Care Team Providers Care Terminal Operator Name Role Phone Levi OD, Henry Unavailable Unavailable Advance Directives Directive Yes / No Effective Date File Name No Information Encounters Encounter Description Practice Location Reason(s) For Visit Diagnoses Date Provider Providers Copied on Encounter [facility], [id number] [place] [address] [address], [place], [place], [id number], [place] tel:[phone] [facility] ([facility]) No Information Dec-2 2-200 0 Levi OD Henry. [address] , [address], [place], [address], [place]. tel:[phone] Family History Family Member Type Diagnosis Age At Onset No Information Payers Payer name Insurance type Covered democrat ID Authoriza tion(s) No Information Social History Type Description Quantity Date Captured Comments Sex Female Smoking Status No Information Chief Complaint And Reason For Visit No Information Reason For Referral Reason For Referral No Information History Of Present Illness Encounter Date Complaint History Of Prese nt Illness No Information Functional Status Date Functional Assessmen t No Information Instructions Date Instruction Additional Infor mation No Information Assessments Type Assessment Date No Information Patient Care Teams Name Effective Dates (start - stop) Status Members No Information
--- OUTSIDE RECORDS SUMMARY | 2024-07-24 11:48 | XMS_ITS | Patient Health Record ---
Author Organization [facility] [place] ([address]) Address [address] [place] [address] Care Team Providers Care Automotive Hardware Engineer Name Role Phone Kinjal Hamilton Unavailable [phone] Reason For Referral No Information Plan Of Treatment No Information Insurance Providers Payer Name Payer Address Payer Phone Subscriber Number Group Number Insured Name Patient Relationship to Insured Coverage Start Date Coverage End Date [facility] [address] [place] [address] [phone] [id number] Prema Meléndez Self - patient is the insured
--- OUTSIDE RECORDS SUMMARY | 2024-07-24 11:48 | XMS_ITS ---
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 * Medical History: Objective: * Vitals: Assessment: Plan: * Treatment: * Billing Information: * Visit Code: * Procedure Codes: * Electronic signature of Lilibeth Hamilton MD on 07/24/2024 at 11:48 AM CDT Sign off status: Pending * Provider: Dafne Hamilton MD Date: 1 Generated for Antoinette vincent/[employer]/eTransmitting on: 0 07/24/2024 11:48 AM CDT
--- OUTSIDE RECORDS SUMMARY | 2024-07-24 12:24 | XMS_ITS | Clinical Summary ---
Author Organization [facility] [employer] Address [address] [place] [address] Care Team Providers Care Media Director Name Role Phone Pcp, Yusuf Almendarez Primary Care Provider Unav ailable Source Comments [facility],non-owned Affiliates and Associated Physician Practices is amultiple site organization consisting of ambulatory clinics and hospital sitesin [place], [place], [place] and [place]. This disclosure is being madepursuant to the Care Everywhere program and may not contain all information available regarding this patient. 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 Not on file Not on file Last Filed Vital Signs Vital Sign Reading Time Taken Comments Blood Pressure 138/82 01/14/2021 11:34 AM RECREATIONAL THERAPIST Pulse 74 01/14/2021 11:34 AM RECREATIONAL THERAPIST Temperature 36.6 C (97.9 F) 09/11/2020 1:56 PM CDT Respiratory Rate - - Oxygen Saturation 100% 01/14/2021 11:34 AM RECREATIONAL THERAPIST Inhaled Oxygen Concentration - - Weight 60.8 kg (134 lb) 01/14/2021 11:34 AM RECREATIONAL THERAPIST Height 165.1 cm (5' 5) 01/14/2021 11:34 AM RECREATIONAL THERAPIST Body Mass Index 22.3 01/14/2021 11:34 AM RECREATIONAL THERAPIST Plan of Treatment Health Maintenance Due Date [...] Most Recently Relevant to Health Maintenance Insurance BC/[facility] Care Teams Media Director Relationship Specialty Start Date End Date Pcp, Yusuf Almendarez PCP - General 09/03/22
[2024-07-24 12:41] LABS: Basophils Absolute Auto 0.1 K/mm3 (0.0-0.1); Basophils Percent Auto 0.7 % (0.2-1.2); Eosinophils Absolute Auto 0.2 K/mm3 (0-0.3); Eosinophils Percent Auto 2.6 % (0-4.4); Hematocrit 40.1 % (37.0-47.0); Hemoglobin 12.5 g/dL (12.0-15.0); Immature Granulocyte Absolute 0.02 K/mm3 (0.00-0.031); Immature Granulocyte Percent A 0.2 % (0-0.5); Lymphocytes Absolute Auto 1.25 K/mm3 (0.9-3.2); Lymphocytes Percent Auto 14.7 % (18.3-44.2); Mean Corpuscular HGB Conc 31.2 g/dl (32-36); Mean Corpuscular Hemoglobin 28.8 pg (26-34); Mean Corpuscular Volume 92.4 fl (80-100); Mean Platelet Volume 8.7 fl (7.4-10.4); Monocytes Absolute Auto 0.8 K/mm3 (0.1-0.6); Monocytes Percent Auto 9.4 % (2.6-8.5); Neutrophils Absolute Auto 6.1 K/mm3 (1.3-6.7); Neutrophils Percent Auto 72.4 % (45.5-73.1); Platelet Count Result 331 k/mm3 (150-375); Red Blood Count 4.34 M/mm3 (4.2-5.4); Red Cell Distribution Width 13.2 % (11.5-14.5); White Blood Count 8.5 K/mm3 (4.5-10.0)
[2024-07-24 12:53] LABS: Anion Gap 4 mmol/L (4-12); Blood Urea Nitrogen 17 mg/dL (7-17); CRP 0.5 mg/dL (<1.0); Calcium 9.7 mg/dL (8.4-10.2); Carbon Dioxide 28 mmol/L (22-30); Chloride 106 mmol/L (98-107); Estimated CRCL calculation 65 ml/min; Estimated Glomerular Filt Rate > 60; Glucose 95 mg/dL (65-110); Potassium 4.1 mmol/L (3.4-5.0); Sodium 138 mmol/L (137-145)
[2024-07-24 13:02] VITALS: BP 149/79; PULSE 75; RESP 16; O2SAT 99
[2024-07-24 13:08] LABS: Erythrocyte Sedimentation Rate 15 mm/hr (0-20)
[2024-07-24 14:27] VITALS: BP 134/69; PULSE 72; RESP 16; O2SAT 99
== END 2024-07-24 14:29 | disposition home or self-care (01) ==
PROVIDERS: Emergency Provider Physician Assistant; PCP Family Medicine
DX: L02.415 Cutaneous abscess of right lower limb (principal); S81.851A Open bite, right lower leg, initial encounter; E78.5 Hyperlipidemia, unspecified; E55.9 Vitamin D deficiency, unspecified; R73.03 Prediabetes; F41.9 Anxiety disorder, unspecified; Z87.891 Personal history of nicotine dependence; Z90.711 Acquired absence of uterus with remaining cervical stump; Z90.89 Acquired absence of other organs; W55.01XA Bitten by cat, initial encounter
CPT/HCPCS: 10061; 36415; 80048; 85025; 85652; 86140; 87070; 87075; 87205; 99283

== ENCOUNTER 2024-12-05 14:00 | Outpatient (CLI) | payer BC, SELFPAY ==
--- NOTE | ~2024-12-05 | MM_ITS ---
EXAMINATION: MM screening [facility] BI w angelo HISTORY: Screening TECHNIQUE: Craniocaudal and mediolateral oblique 3-D tomosynthesis images were obtained and synthetic 2-D images were generated. CAD analysis was submitted and interpreted. COMPARISON: Comparison to multiple prior studies sequentially, with oldest reviewed study dated 01/02/2019. BREAST PARENCHYMAL COMPOSITION: Dense: The breasts are heterogeneously dense, which may obscure small masses FINDINGS: There is no evidence of suspicious mass, calcification, or architectural distortion to suggest malignancy in either breast. There has been no suspicious interval change. IMPRESSION: 1. No mammographic evidence of malignancy. 2. Recommend routine screening mammography in one year. BI-RADS Category 1: Negative Reviewed, dictated and finalized at location B.
== END 2024-12-05 14:01 | disposition home or self-care (01) ==
LOC: MICIMG 14:01
PROVIDERS: PCP Student in an Organized Health Care Education/Training Program; Visit Provider Student in an Organized Health Care Education/Training Program
DX: Z12.31 Encounter for screening mammogram for malignant neoplasm of breast (principal)
CPT/HCPCS: 77063; 77067